=== PATIENT | female | born 1950 | race Caucasian/White ===

== ENCOUNTER → 2017-04-07 09:06 | Emergency (ER) | payer OTHER ==
[2017-04-07 10:34] VITALS: BP 149/84
--- NOTE | 2017-04-07 10:51 | ED ---
Throat Pain/Nasal Congestion - HPI Summary HPI Summary: 66 yr old female with bilateral maxillary sinus pressure, right worse than left with associated post nasal drip. She states she feels like this is a sinus infection. denies fever. - History of Current Complaint Chief Complaint: UCRespiratory Time Seen by Provider: 04/07/17 10:35 - Allergies/Home Medications Allergies/Adverse Reactions: Allergies Allergy/AdvReac Type Severity Reaction Status Date / Time amoxicillin Allergy Severe Diarrhea Verified 04/07/17 10:28 Home Medications: Home Medications Hydrochlorothiazide TAB* [Hydrodiuril TAB*] 1 tab WEEKLY 04/07/17 [History Confirmed 04/07/17] PMH/Surg Hx/FS Hx/Imm Hx Cardiovascular History: Reports: Hx Hypertension - Surgical History Surgery Procedure, Year, and Place: gallbladder 1985 Infectious Disease History: No Infectious Disease History: Denies: Traveled Outside the [place] in Last 30 Days - Family History Known Family History: Positive: None - Social History Alcohol Use: Daily Alcohol Amount: wine Substance Use Type: Reports: None Smoking Status (MU): Never Smoked Tobacco Review of Systems Constitutional: Negative Positive: Other - sinus pain, pressure All Other Systems Reviewed And Are Negative: Yes Physical Exam Triage Information Reviewed: Yes Vital Signs On Initial Exam: Initial Vitals Temp Pulse Resp BP Pulse Ox 98.6 F 58 16 149/84 100 04/07/17 10:30 04/07/17 10:30 04/07/17 10:30 04/07/17 10:30 04/07/17 10:30 Vital Signs Reviewed: Yes Appearance: Positive: Well-Appearing, No Pain Distress Skin: Positive: Warm Head/Face: Positive: Normal Head/Face Inspection Eyes: Positive: EOMI ENT: Positive: Nasal congestion, Nasal drainage, TMs normal, Sinus tenderness Neck: Positive: Nontender Respiratory/Lung Sounds: Positive: Clear to Auscultation, Breath Sounds Present Cardiovascular: Positive: RRR. Negative: Murmur Abdomen Description: Positive: Nontender Musculoskeletal: Positive: Strength/ROM Intact Neurological: Positive: Sensory/Motor Intact, Alert, Oriented to Person Place, Time, CN Intact II-III Psychiatric: Positive: Normal - [place] Coma Scale Best Eye Response: 4 - Spontaneous Best Motor Response: 6 - Obeys Commands Best Verbal Response: 5 - Oriented Coma Scale Total: 15 Diagnostics - Vital Signs Vital Signs Temp Pulse Resp BP Pulse Ox 04/07/17 10:30 98.6 F 58 16 149/84 100 - Laboratory Lab Statement: Any lab studies that have been ordered have been reviewed, and results considered in the medical decision making process. EENT Course/Dx - Course Course Of Treatment: 66 yr old female with the complaint of sinus pressure, post nasal drip. Rx wtih Biaxin. - Diagnoses Provider Diagnoses: Sinusitis, Hypertension Discharge - Discharge Plan Condition: Good Disposition: HOME Prescriptions: Clarithromycin TAB* [Biaxin 500 MG TAB*] 500 mg PO BID #20 tab Patient Education Materials: Sinusitis (ED), Hypertension (ED) Referrals: Leroy BYNUM,Yuri Obando [Primary Care Provider] - 5 Days
== END | disposition home or self-care (01) ==
LOC: UCCORT 09:06
DX: J32.9 Chronic sinusitis, unspecified (principal); I10 Essential (primary) hypertension
CPT/HCPCS: 99212; G0463

== ENCOUNTER 2018-05-30 09:20 | Emergency (ER) | payer MEDICARE, OTHER ==
[2018-05-30 09:35] VITALS: BP 160/82
--- NOTE | 2018-05-30 09:45 | UC ---
Throat Pain/Nasal Ehsan HPI - HPI Summary HPI Summary: Pt c/o nasal congestion, sinus pressure and pain, CAMPBELL and generalized malaise X 2 weeks. Also, c/o righ tear pain and fullness X 2 weeks. - History of Current Complaint Chief Complaint: UCRespiratory Stated Complaint: SINUS COMPLAINT, RT EAR COMPLAINT Time Seen by Provider: 05/30/18 09:31 Hx Obtained From: Patient ?: No Onset/Duration: Gradual Onset, Lasting Weeks, Still Present, Worse Since - onset Severity: Severe Pain Intensity: 7 Cough: None Associated Signs & Symptoms: Positive: Sinus Discomfort, Nasal Discharge, Fever - Epiglottits Risk Factors Epiglottis Risk Factors: Negative - Allergies/Home Medications Allergies/Adverse Reactions: Allergies Allergy/AdvReac Type Severity Reaction Status Date / Time amoxicillin Allergy Severe Diarrhea Verified 04/07/17 10:28 Home Medications: Home Medications guaiFENesin [Mucinex] 600 mg PO ONCE 05/30/18 [History Confirmed 05/30/18] PMH/Surg Hx/FS Hx/Imm Hx Previously Healthy: Yes - Surgical History Surgical History: Yes Surgery Procedure, Year, and Place: gallbladder 1985 - Family History Known Family History: Positive: Cardiac Disease - Social History Occupation: Retired Lives: With Family Alcohol Use: Daily Alcohol Amount: wine Substance Use Type: None Smoking Status (MU): Never Smoked Tobacco Have You Smoked in the Last Year: No Review of Systems All Other Systems Reviewed And Are Negative: Yes Constitutional: Positive: Negative Skin: Positive: Negative Eyes: Positive: Negative ENT: Positive: Ear Ache, Sinus Congestion, Sinus Pain/Tenderness Respiratory: Positive: Negative Cardiovascular: Positive: Negative Gastrointestinal: Positive: Negative Genitourinary: Positive: Negative Motor: Positive: Negative Neurovascular: Positive: Negative Musculoskeletal: Positive: Myalgia Neurological: Positive: Headache Psychological: Positive: Negative Is Patient Immunocompromised?: No Physical Exam Triage Information Reviewed: Yes Appearance: Well-Appearing Vital Signs: Initial Vital Signs Temp 98.7 F 05/30/18 09:31 Pulse 82 05/30/18 09:31 Resp 15 05/30/18 09:31 BP 160/82 05/30/18 09:31 Pulse Ox 99 05/30/18 09:31 Vital Signs Reviewed: Yes Eye Exam: Normal ENT: Positive: Nasal congestion, Sinus tenderness Dental Exam: Normal Neck exam: Normal Respiratory Exam: Normal Cardiovascular Exam: Normal Musculoskeletal Exam: Normal Neurological Exam: Normal Psychological Exam: Normal Skin Exam: Normal Throat Pain/Nasal Course/Dx - Differential Dx/Diagnosis Differential Diagnosis/HQI/PQRI: Influenza, Sinusitis, URI Provider Diagnosis: Sinusitis, Acute effusion of right ear Discharge - Sign-Out/Discharge Documenting (check all that apply): Patient Departure All imaging exams completed and their final reports reviewed: No Studies - Discharge Plan Condition: Stable Disposition: HOME Prescriptions: DOXYcycline CAP(*) [DOXYcycline 100MG CAP(*)] 100 mg PO Q12H #20 cap Patient Education Materials: Sinusitis (ED) Referrals: Sabrina BYNUM,Ginger Nguyen [Primary Care Provider] - If Needed Additional Instructions: Please follow up with your PCP or return to clinic. As discussed, to help manage your symptoms Coricidin or the generic equivalent is recommended. - Billing Disposition and Condition Condition: STABLE Disposition: Home - Attestation Statements Provider Attestation: I was available for consult. This patient was seen by the ALF. The patient was not presented to, seen by, or examined by me. EK
== END 2018-05-30 09:53 | disposition home or self-care (01) ==
LOC: UCCORT 09:20
DX: J32.9 Chronic sinusitis, unspecified (principal); H74.8X1 Other specified disorders of right middle ear and mastoid; Z88.0 Allergy status to penicillin
CPT/HCPCS: 99212; G0463